=== PATIENT | female | born 1990 | race Hispanic/Latino ===

== ENCOUNTER → 2021-11-28 | Day surgery (SDC) | payer BC ==
[2021-11-26 08:58] LABS: CLARITY,URINE SL CLOUDY (CLEAR); COLOR,URINE YELLOW (YELLOW); LEUKOCYTE ESTERASE ,URINE NEGATIVE (NEGATIVE); NITRITE,URINE NEGATIVE (NEGATIVE); PROTEIN,URINE DIPSTICK 1+ (NEGATIVE)
[2021-11-26 08:59] LABS: KETONES,URINE NEGATIVE (NEGATIVE); URINE UROBILINOGEN 0.2 mg/dL (0.2 - 1)
[~2021-11-28] MED LIST: BIRTH CONTROL PILL PO; BUPIVACAINE 0.25% 30ML SDV ONE; DEXAMETHASONE SOD PHOS INJ 4 MG/ML SDV ONE; FENTANYL CITRATE/PF 100MCG/2 ML INJ ONE; KETOROLAC TROMETHAMINE 30 MG/ML VIAL ONE; LEVOFLOXACIN500 MG; LIDOCAINE HCL 2% LOCAL INJ 5 ML SDV VIAL INJ ONE; MIDAZOLAM HCL 2 MG/2 ML VIAL ONE; ONDANSETRON HCL INJ 2MG/ML 2ML 2 MG/ML VIAL ONE; POVIDONE IODINE 0.05% 0.05 % ML PO ONE; PROMETHAZINE HCL (IM) 25 MG/ML VIAL IM ONE; PROPOFOL IV EMULSION 10 MG/ML 20 ML VIAL ONE
[2021-11-28 18:35] VITALS: BP 105/83
== END | disposition home or self-care (01) ==
LOC: OR 11:24
PROVIDERS: ATTEND Podiatrist
DX: M21.611 Bunion of right foot (principal); Q66.89 Other specified congenital deformities of feet; M21.271 Flexion deformity, right ankle and toes; L84 Corns and callosities; N39.0 Urinary tract infection, site not specified; Z88.0 Allergy status to penicillin; Z01.812 Encounter for preprocedural laboratory examination; Z20.822 Contact with and (suspected) exposure to COVID-19
CPT/HCPCS: 28299; 28308; 81003; 81025; C1713; J1100; J1885; J2001; J2405; J2704; U0002; J2250; J2550; J3010